=== PATIENT | male | born 1960 | race Caucasian/White ===

== ENCOUNTER 2019-10-28 20:04 | Emergency (ER) | payer BC ==
[2019-10-28 20:13] VITALS: BP 155/129
--- NOTE | 2019-10-28 20:26 | UC ---
Cardiac HPI - HPI Summary HPI Summary: 59-year-old male comes in with a chief complaint of chest pain. Pain started early this morning. Is been variable intensity right now is about an 8 out of 10. It's in the lower sternal area. Denies any radiation of the pain. He was nauseous earlier on but he did not throw up. He does have high blood pressure and high cholesterol. He does not have diabetes. Pains in the lower chest she does feel a little bit of upper abdominal pain also. No they have insurance breath sweating. - History of Current Complaint Chief Complaint: UCChestPain Stated Complaint: CHEST PAIN Time Seen by Provider: 10/28/19 20:18 Pain Intensity: 8 - Allergy/Home Medications Allergies/Adverse Reactions: Allergies Allergy/AdvReac Type Severity Reaction Status Date / Time No Known Allergies Allergy Verified 10/28/19 20:11 Home Medications: Home Medications Lisinopril TAB* [Prinivil TAB*] 20 mg PO DAILY 10/28/19 [History Confirmed 10/28] Simvastatin [Zocor 5 MG-] 1 tab DAILY 10/28/19 [History Confirmed 10/28/19] PMH/Surg Hx/FS Hx/Imm Hx Previously Healthy: Yes Endocrine History: Dyslipidemia Cardiovascular History: Hypertension - Surgical History Surgical History: Yes Surgery Procedure, Year, and Place: SHOULDER SURGERY OCT 2014 - Family History Known Family History: Positive: Non-Contributory - Social History Alcohol Use: None Substance Use Type: None Smoking Status (MU): Never Smoked Tobacco - Immunization History Most Recent Influenza Vaccination: FALL 2013 Review of Systems All Other Systems Reviewed And Are Negative: Yes Constitutional: Positive: Other - SEE HPI Skin: Positive: Negative Eyes: Positive: Negative ENT: Positive: Negative Respiratory: Positive: Other - SEE HPI Cardiovascular: Positive: Chest Pain Gastrointestinal: Positive: Nausea, Other - SEE HPI Motor: Positive: Negative Neurovascular: Positive: Negative Musculoskeletal: Positive: Negative Neurological: Positive: Negative Psychological: Positive: Negative Is Patient Immunocompromised?: No Physical Exam Triage Information Reviewed: Yes Appearance: Well-Appearing, Well-Nourished, Pain Distress - MILD Vital Signs: Initial Vital Signs Temp 97.3 F 10/28/19 20:06 Pulse 96 10/28/19 20:06 Resp 16 10/28/19 20:06 BP 155/129 10/28/19 20:06 Pulse Ox 99 10/28/19 20:06 Vital Signs Reviewed: Yes Eye Exam: Normal Eyes: Positive: Conjunctiva Clear Neck: Positive: Supple Respiratory: Positive: Chest non-tender, Lungs clear, Normal breath sounds, No respiratory distress Cardiovascular: Positive: RRR Abdomen Description: Positive: Other: - Mild tenderness to palpation in the epigastrium up underneath the ribs. Rest the abdomen is nontender to palpation. I do not feel any pulsatile mass. Bowel Sounds: Positive: Present Musculoskeletal: Positive: Strength Intact, ROM Intact Neurological: Positive: Alert, Muscle Tone Normal Psychological: Positive: Normal Response To Family, Age Appropriate Behavior Skin Exam: Normal Diagnostics - EKG Cardiac Rate: NL - AT 2009 Cardiac Rhythm: Sinus: Normal - 86BPM Ectopy: None ST Segment: Normal - Assessment/Plan Course Of Treatment: I discussed the EKG with the patient and his . I do not see any ischemic changes her regular rhythm. I recommended further evaluation in the emergency department. Patient and his prefer to go by POV. I discussed the case with the [place] emergency department. - Clinical Impression Provider Diagnosis: Chest pain Discharge ED - Sign-Out/Discharge Documenting (check all that apply): Patient Departure All imaging exams completed and their final reports reviewed: No Studies - Discharge Plan Condition: Stable Disposition: HOME-RECOMMEND TO ED Patient Education Materials: Chest Pain (ED) Referrals: Ronda Munson NP [Primary Care Provider] - Additional Instructions: GO DIRECTLY TO THE EMERGENCY DEPARTMENT FOR FURTHER EVALUATION AND CARE OF YOUR CHEST PAIN. - Billing Disposition and Condition Condition: STABLE Disposition: Home-Recommend to ED
== END 2019-10-28 20:31 | disposition home health service (06) ==
LOC: UCCORT 20:04
DX: R07.9 Chest pain, unspecified (principal); R11.0 Nausea; R10.10 Upper abdominal pain, unspecified; E78.5 Hyperlipidemia, unspecified; I10 Essential (primary) hypertension; Z79.899 Other long term (current) drug therapy
CPT/HCPCS: 93005; 99212; G0463